=== PATIENT | male | born 1935 | race Caucasian/White ===

== ENCOUNTER 2016-07-24 11:21 | Day surgery (SDC) | payer MEDICARE, BC ==
[~2016-07-24 11:21] MED LIST: Acetaminophen TAB* 325 MG PO PRN; Buffered Lidocaine 1% SYRIN* 3 ML/SYR SYRINGE INTRADERM ONE; Cyclopentolate 1% OPTH.SOL* 2 ML BTL ONE; Flurbiprofen 0.03% OPTH.SOL* 2.5 ML BTL ONE; Lidocaine 1% MPF* 2 ML VIAL ONE; Neomycin/Polymy/Dex OPHTH.OIN* 3.5 GM ONE; Phenylephr/Ketorolac 1%/0.3% OPH DROP BTL ONE; Phenylephrine 2.5% OPTH.SOL* 2 ML BTL ONE; Tetracaine 0.5% OPTH.SOL 4 ML* 1 DROP BTL ONE; Tropicamide 1% OPTH.SOL* BTL ONE
[2016-07-24] MEDS ORDERED: Midazolam* 1 MG/ML 2 ML VIAL (2 MG) ONE (12:53)
[2016-07-24] MEDS ORDERED: fentaNYL* 50 MCG/ML 2 ML VIAL (100 MCG VIAL) ONE (12:53)
[2016-07-24 13:53] VITALS: BP 146/71
--- NOTE | 2016-07-25 01:26 | OP ---
DATE OF OPERATION: 07/24/16 - [facility] DATE OF : 33 SURGEON: Mal Santana MD BIBLICAL STUDIES PROFESSOR: None. ANESTHESIOLOGIST: Gordon Bejarano MD ANESTHESIA: Topical with intravenous sedation. PRE-OP DIAGNOSIS: Cataract, small pupil, right eye. POST-OP DIAGNOSIS: Cataract, small pupil, right eye. SURGICAL PROCEDURE: Phacoemulsification and cataract extraction with posterior chamber intraocular lens implant, right eye and use of Malyugin ring. COMPLICATIONS: None. ESTIMATED BLOOD LOSS: None. DESCRIPTION OF PROCEDURE: The patient was brought to the operating room and given a small amount of intra-venous sedation. A drop of tetracaine was placed in his right eye. He was prepped and draped in the usual sterile fashion for ophthalmic surgery and attention was directed to the right eye where a speculum was placed. A paracentesis was created at the 11 o'clock position and 0.1 cc of 1% preservative- free Lidocaine was injected into the anterior chamber followed by DisCoVisc. It was noted that his pupil remained approximately 4 mm in diameter despite appropriate preoperative dilating drops and the intraoperative DisCoVisc. A triplanar clear corneal incision was made at the 9 o'clock position with a 2.75 mm blade while the eye was digitally sterilized. A Malyugin ring was atraumatically introduced into the eye and engaged the pupil. A continuous curvilinear capsulorrhexis was created with a cystotome and Utrata forceps measuring approximately 4.5 mm. BSS on a cannula was used to hydrodissect the lens from the capsule. Phaco-emulsification was performed in a lklowh-lsw-trlicfh technique to create 4 fragments, which were removed. Residual cortical material was removed with irrigation and aspiration. An AU00T0 22.0 diopter lens was inserted into the capsular bag. Viscoelastic was removed using irrigation and aspiration from the area posterior to the lens. Supplemental viscoelastic was added anterior to the lens and the Malyugin ring was atraumatically removed. The remainder of the DisCoVisc was removed from the eye using irrigation aspiration. BSS on a cannula was used to hydrate the corneal stroma and seal the wound. At the end of the case, the pupil was round and the lens was centered. The eye pressure was normal and the wound was water tight. The speculum was removed and topical Maxitrol ointment was placed on the surface of the eye. The eye was closed, patched and shielded, and the patient was sent to the recovery room in stable condition with postoperative instructions and followup appointment given. [id number]/[facility] #: [id number] MAEBL
== END 2016-07-24 14:10 | disposition home or self-care (01) ==
LOC: OREAST 11:21
PROVIDERS: ATTEND Ophthalmology
DX: H25.11 Age-related nuclear cataract, right eye (principal); H21.562 Pupillary abnormality, left eye; Z87.891 Personal history of nicotine dependence; I25.10 Atherosclerotic heart disease of native coronary artery without angina pectoris; I25.2 Old myocardial infarction; I10 Essential (primary) hypertension; Z79.01 Long term (current) use of anticoagulants; Z85.118 Personal history of other malignant neoplasm of bronchus and lung; Z85.528 Personal history of other malignant neoplasm of kidney; Z85.46 Personal history of malignant neoplasm of prostate
CPT/HCPCS: C9447; J2250; J3010

== ENCOUNTER 2016-07-31 08:30 | Day surgery (SDC) | payer MEDICARE, BC ==
[~2016-07-31 08:30] MED LIST changes: -Cyclopentolate 1% OPTH.SOL* 2 ML BTL ONE; -Flurbiprofen 0.03% OPTH.SOL* 2.5 ML BTL ONE; -Lidocaine 1% MPF* 2 ML VIAL ONE; -Neomycin/Polymy/Dex OPHTH.OIN* 3.5 GM ONE; -Phenylephr/Ketorolac 1%/0.3% OPH DROP BTL ONE; -Phenylephrine 2.5% OPTH.SOL* 2 ML BTL ONE; -Tetracaine 0.5% OPTH.SOL 4 ML* 1 DROP BTL ONE; -Tropicamide 1% OPTH.SOL* BTL ONE
[2016-07-31] MEDS ORDERED: Midazolam* 1 MG/ML 2 ML VIAL (2 MG) ONE (09:24)
[2016-07-31 10:29] VITALS: BP 145/74
[2016-07-31] MEDS ORDERED: Tropicamide 1% OPTH.SOL* BTL ONE (13:24)
[2016-07-31] MEDS ORDERED: Neomycin/Polymy/Dex OPHTH.OIN* 3.5 GM ONE (13:24)
[2016-07-31] MEDS ORDERED: Tetracaine 0.5% OPTH.SOL 4 ML* 1 DROP BTL ONE (13:24)
[2016-07-31] MEDS ORDERED: Lidocaine 1% MPF* 2 ML VIAL ONE (13:24)
[2016-07-31] MEDS ORDERED: Flurbiprofen 0.03% OPTH.SOL* 2.5 ML BTL ONE (13:24)
[2016-07-31] MEDS ORDERED: Phenylephrine 2.5% OPTH.SOL* 2 ML BTL ONE (13:24)
[2016-07-31] MEDS ORDERED: Cyclopentolate 1% OPTH.SOL* 2 ML BTL ONE (13:24)
--- NOTE | 2016-07-31 22:11 | OP ---
DATE OF OPERATION: 07/31/16 - LOCATED WITHIN [facility] DATE OF : 33 SURGEON: Mal Santana MD SPA ASSOCIATE: None. ANESTHESIOLOGIST: Julia El MD ANESTHESIA: Topical with intravenous sedation. PRE-OP DIAGNOSIS: Cataract, small pupil, left eye. POST-OP DIAGNOSIS: Cataract, small pupil, left eye. OPERATIVE PROCEDURE: Phacoemulsification and cataract extraction with posterior chamber intraocular lens implant, left eye and use of Malyugin ring and Omidria. COMPLICATIONS: None. ESTIMATED BLOOD LOSS: None. DESCRIPTION OF PROCEDURE: The patient was brought to the operating room and received a drop of tetracaine in his left eye. He was prepped and draped in the usual sterile fashion for ophthalmic surgery and attention directed to the left eye, where a speculum was placed. It was noted that the pupil measured approximately 4 mm despite appropriate preoperative dilating drops. A paracentesis was created at the 5 o'clock position and 0.1 cc of 1% preservative -free lidocaine was injected into the anterior chamber followed by DisCoVisc. The eye was digitally stabilized while a 2.75 mm keratome was used to create a triplanar clear corneal incision at the 3 o'clock position. It was noted that the pupil failed to enlarge with the addition of the DisCoVisc. Thus, a Malyugin ring was atraumatically inserted into the eye. At this point, a continuous curvilinear capsulorrhexis was created using a cystotome and Utrata forceps. BSS on a cannula was used to hydrodissect the lens from the capsule. Phacoemulsification was performed in a duywkc-qhe-rphufwy technique to create four fragments which were removed. Residual cortical material was removed with irrigation and aspiration. DisCoVisc was used to inflate the capsular bag. An AU00T0 22 diopter lens was folded and inserted into the capsular bag. DisCoVisc was removed from behind the lens. Supplemental DisCoVisc was placed anterior to lens. The Malyugin ring was then removed atraumatically from the eye. The remainder of the DisCoVisc was removed from the eye using irrigation and aspiration. BSS on a cannula was used to hydrate the corneal stroma and seal the wound. At the end of the case, the pupil was round and measured approximately 4 mm. The eye pressure appeared normal and the wound was watertight. The speculum was removed and topical Maxitrol ointment was placed on the surface of the eye. The eye was closed, patched, and shielded and the patient was sent to recovery room in stable condition with postop instructions and followup appointment given. [id number]/[facility] #: [id number] MTDD
== END 2016-07-31 10:38 | disposition home or self-care (01) ==
LOC: OREAST 08:30
PROVIDERS: ATTEND Ophthalmology
DX: H25.12 Age-related nuclear cataract, left eye (principal); H21.562 Pupillary abnormality, left eye; I25.10 Atherosclerotic heart disease of native coronary artery without angina pectoris; I10 Essential (primary) hypertension; E78.00 Pure hypercholesterolemia, unspecified; K21.9 Gastro-esophageal reflux disease without esophagitis; R73.01 Impaired fasting glucose; D64.9 Anemia, unspecified
CPT/HCPCS: A9270-GY; J2250; V2632